=== PATIENT | male | born 2005 | race African-American/Black ===

== ENCOUNTER 2024-07-01 14:19 | Emergency (ER) | payer MEDICAID, SELFPAY ==
[2024-07-01 14:28] VITALS: BP 134/67; PULSE 68; RESP 16; TEMP 36.9; O2SAT 100; BMI 19.4
--- NOTE | 2024-07-01 14:29 | ED.MALEGU ---
HPI - Male Genitourinary General Chief complaint: Urogenital-Male Stated complaint: Pain upon urination Time Seen by Provider: 07/01/24 20:01 History of Present Illness ED Provider: Sabra DOZIER Narrative: The patient is a 19-year-old male who says that he had unprotected sexual intercourse a week ago with a woman he does not know very well. He says that he has had mild burning on urination for the last 2-3 days. He denies penile discharge. She denies any testicular pain. He denies any skin changes or lesions to his penis or scrotum. No fever, sweats, chills. Related Data Allergies Allergy/AdvReac Type Severity Reaction Status Date / Time No Known Allergies Allergy Verified 07/01/24 14:34 Review of Systems Review of Systems: Yes all other systems are reviewed and are negative [facility] Social History Social History Smoked in Last 30 Days: Yes Use of substances other than those prescribed or required for medical reasons: No Advance Directives: No Advance Directives Information Provided: Yes Physical Exam Vital Signs: Vital Signs: Last Vital Signs Temp 97.7 F 07/01/24 21:13 Pulse 57 07/01/24 21:13 Resp 16 07/01/24 21:13 BP 127/73 07/01/24 21:13 Pulse Ox 100 07/01/24 21:13 O2 Del Method Room Air 07/01/24 21:13 BMI result Body Mass Index 19.4 Const: Other: The patient is a slim young man who was awake and alert and does not appear acutely ill. HEENT: Other: Face is symmetrical, mucous membranes moist. Eyes: General: appearance normal, both eyes and all related structures Neck: Neck: Yes normal visual inspection and Yes full ROM Resp: Effort & Inspection: normal respiratory effort Auscultation: clear to auscultation bilaterally Cardio: Rate: regular rate Rhythm: regular rhythm Heart sounds: S1 normal heart sound present and S2 normal heart sound present : Other: The patient deferred a genital examination Skin: Other: Skin is dry and unremarkable Neuro: Other: The patient is awake, alert, pleasant, cooperative. Cranial nerves are grossly intact. He moves his extremities normally and appropriately. Extrem: Other: No peripheral edema Course Course Course Narrative: This is a Rapid Medical Exam performed in triage by Maritza Couch PA-C. Full HPI, ROS and PE to be performed by primary ED provider. 19 yo [place] speaking male presenting to the ED c/o dysuria x 2-3 days. Admits to unprotected intercourse last week. Sent in from [employer]. denies penile discharge, abdominal pain/back pain, testicular pain PE: area not examine in triage Plan: UA, CT/NG Medications Administered Discontinued Medications Generic Name Dose Route Start Last Admin Trade Name Boogie PRN Reason Stop Dose Admin Ceftriaxone Sodium 500 mg 07/01/24 20:17 07/01/24 21:09 Ceftriaxone Sodium 500 Mg Vial IM 07/01/24 20:18 500 mg ONCE ONE Administration Doxycycline Monohydrate 100 mg 07/01/24 20:17 07/01/24 21:08 Doxycycline Monohydrate 100 Mg Capsule PO 07/01/24 20:18 100 mg ONCE ONE Administration Medical Decision Making Medical Decision Making [facility] Narrative: The patient is a very pleasant ordinarily healthy 19-year-old who is here for concern about a possible sexually transmitted infection. He had a sexual encounter 1 week ago with a person he does not know very well. He says he has been having some mild dysuria for the last 2 or 3 days. He denies penile discharge or testicular pain. He denies any fever, sweats, chills. He declined a genital exam. His urinalysis is unremarkable. Urine testing for gonorrhea and chlamydia are negative. I explained to the patient that these test results are not always reliable and that we would provide treatment for him for a possible STD exposure regardless. He was given 500 mg of IM ceftriaxone and will be treated with doxycycline 100 mg b.i.d. x1 week for possible nongonococcal urethritis. Additionally the patient was interested in being tested for HIV and syphilis. An HIV test and an RPR were sent. He has a PCP and he is advised to follow up with his PCP next week. Lab Data Labs: Lab Results 07/01/24 Range/Units 14:47 Urine Color Yellow Urine Appearance Clear Urine pH 7.0 (5.0-9.0) Ur Specific [place] 1.015 (1.005-1.025) Urine Protein Negative (Neg-Trace) mg/dL Urine Glucose (UA) Negative (Negative) mg/dL Urine Ketones Negative (Negative) mg/dL Urine Blood Negative (Negative) Urine Nitrite Negative (Negative) Ur Leukocyte Esterase Negative (Negative) Chlam trachomat DNA PCR NOT DETECTED (Not Detect.) N.gonorrhoeae DNA (PCR) NOT DETECTED (Not Detect.) Discharge Plan Discharge Clinical Impression: Dysuria, Urethritis Patient Disposition: Home, Self-Care Additional Instructions: Your screening tests for two common sexually transmitted infections, gonorrhea and chlamydia, are negative. Although it is good that you are testing negative we do not rely completely on these tests and therefore we have provided treatment for these conditions. You received an injection of an antibiotic called ceftriaxone. Additionally, and probably more importantly, you has been prescribed a course of doxycycline. Please finish this course of medicine and take all 7 days' worth. Blood tests has been sent for HIV and syphilis testing. Please contact your primary care doctor's office in the morning to arrange a follow up appointment next week to discuss how you are doing and the results of these tests. I would recommend avoiding any sexual contact until you have followed up with your regular doctor for additional advice and have received all the results of any testing we have done. Return to the emergency room if you feel significantly worse. Referrals: Bishop Aguero FNP [Nurse Practitioner] - (Possible STD exposure) Interventions: ED Discharge Assessment Last Done: 07/01/24 21:13 Discharge Date/Time: 07/01/24 21:14 Print Language: German
[2024-07-01 14:58] LABS: Appearance Urine Clear; Color Urine Yellow; Glucose Urine UA Negative (Negative); Leukocyte Esterase Urine Negative (Negative); Nitrite Urine Negative (Negative); Specific Gravity - Urine 1.015 (1.005-1.025); Urine Blood Negative (Negative); Urine Ketones Negative (Negative); Urine Protein Negative (Neg-Trace)
[2024-07-01 16:27] LABS: CT PCR NOT DETECTED (Not Detect.); NG PCR NOT DETECTED (Not Detect.)
[2024-07-01 21:06] VITALS: BP 127/73; PULSE 57; RESP 16; TEMP 36.5; O2SAT 100
[2024-07-01] MEDS: Doxycycline Monohydrate 100 MG CAPSULE PO (21:08)
[2024-07-01] MEDS: cefTRIAXone sodium 500 MG VIAL IM (21:09)
[2024-07-01 21:13] VITALS: BP 127/73; PULSE 57; RESP 16; TEMP 36.5; O2SAT 100
[2024-07-02 09:07] LABS: HIV AB/AG Nonreactive (Nonreactive); HIV Num 1 0.06 S/CO (0.00-0.99)
[2024-07-02 09:19] LABS: Syphilis Screen Nonreactive (Nonreactive)
== END 2024-07-01 21:14 | disposition home or self-care (01) ==
PROVIDERS: Physician Assistant; Emergency Provider Emergency Medicine
DX: N34.2 Other urethritis (principal); R30.0 Dysuria; Z79.899 Other long term (current) drug therapy
CPT/HCPCS: 36415; 81003; 86780; 87389; 87491; 87591; 96372; 99283; 99284; J0696

== ENCOUNTER 2024-12-09 11:15 | Emergency (ER) | payer OTHER, SELFPAY ==
[2024-12-09 11:31] VITALS: BP 150/62; PULSE 66; RESP 18; TEMP 36.8; O2SAT 99; BMI 18.7
--- NOTE | 2024-12-09 11:37 | ED_ITS ---
HPI - Male Genitourinary General Chief complaint: Urogenital-Male Stated complaint: Pain? Sent from [facility] Time Seen by Provider: 12/09/24 15:28 Source: patient and RN notes reviewed Mode of arrival: ambulatory Limitations: no limitations History of Present Illness ED Provider: Irina Brenner PA-C HPI Narrative: This is a 19-year-old male who presents emergency department for evaluation of white penile discharge and painful urination which started on Sunday. Patient reports that he is sexually active, in his concerned that he has a sexually transmitted infection. Denies any fevers, chills, rashes, testicular pain or swelling. He also reports a mild headache. Denies taking any medications at home to treat his current symptoms. No other complaints or concerns at this time. MD Complaint: penile discharge, dysuria and possible STD exposure Onset (ago): day(s) Duration: constant Location: penis Relieving factors: none Exacerbating factors: none Associated symptoms: Reports denies other symptoms Related Data Previous Rx's ?Medication ?Instructions ?Recorded doxycycline hyclate 100 mg tablet 100 mg PO BID 7 days #13 tabs 12/09/24 Allergies Allergy/AdvReac Type Severity Reaction Status Date / Time No Known Allergies Allergy Verified 12/09/24 11:34 Review of Systems Review of Systems: Constitutional : No Fever, No Chills ENT/Mouth : No sore throat, No Rhinorrhea Eyes: No Eye Pain, No Swelling, No Redness Cardiovascular : No Chest Pain, No SOB Respiratory : No Cough, No Sputum Gastrointestinal : No Nausea, No Vomiting, No Diarrhea, No abdominal Pain Genitourinary : No Dysuria, No Hematuria Musculoskeletal : No joint pain, No Myalgias, No Joint Swelling Skin : No Skin Lesions Neuro : No Weakness, No Numbness, No Headache All other systems reviewed and are negative Yes all other systems are reviewed and are negative Constitutional: Constitutional: Reports as per [facility] Social History Social History Smoked in Last 30 Days: No Use of substances other than those prescribed or required for medical reasons: No Advance Directives: No Advance Directives Information Provided: No Do you have a plan to hurt others: No Plan Physical Exam Vital Signs: Vital Signs: Last Vital Signs Temp 98.0 F 12/09/24 16:10 Pulse 72 12/09/24 16:10 Resp 18 12/09/24 16:10 BP 136/78 11/04/25 16:10 Pulse Ox 100 12/09/24 16:10 O2 Del Method Room Air 12/09/24 16:10 BMI result Body Mass Index 18.7 Const: General: cooperative, comfortable and no acute distress Orientation/consciousness: patient oriented x3 Limitations: no limitations HEENT: Head: Yes normal to inspection, Yes normocephalic and Yes atraumatic Ears: hearing grossly normal bilaterally General nose exam: Normal external nose present Face and sinus: Yes normal facial exam Mouth: Normal oral and palatal mucosa present, oropharynx normal and moist mucous membranes Throat: Yes posterior oropharynx normal Eyes: General: appearance normal, both eyes and all related structures Eyelids: Yes eyelids normal Conjunctivae: conjunctivae normal Sclerae: sclerae normal Pupils: Equal, round and reactive pupils present EOM: EOMs intact bilaterally Neck: Neck: Yes normal visual inspection, Yes full ROM and Yes no lymphadenopathy Lymphatic: no lymphadenopathy noted Chest: Chest palpation & inspection: normal inspection of the chest Resp: Effort & Inspection: normal respiratory effort and able to speak in complete sentences Auscultation: clear to auscultation bilaterally, no crackles, no rales, no rhonchi and no wheezes Cardio: Rate: regular rate Rhythm: regular rhythm Heart sounds: S1 normal heart sound present and S2 normal heart sound present GI: Inspection: Yes normal to inspection Skin: General skin exam: no rashes or lesions noted Trauma: no lacerations or abrasions Wounds: no wounds Neuro: General: patient oriented x3 and moves all extremities Cranial nerves: Yes Equal, round and reactive pupils present Extrem: General: Yes normal to inspection Right upper extremity: normal to inspection Left upper extremity: normal to inspection Right lower extremit y: normal to inspection Left lower extremity: normal to inspection Course Course Course Narrative: This is a rapid medical exam performed by Jas Browning NP: Additional HPI, ROS, PE not included below will be deferred to primary provider. Patient is a 19y/o M presenting with complaint of dysuria and white penile discharge since Sunday. Plan: UA, CT NG urine Medications Administered Discontinued Medications Generic Name Dose Route Start Last Admin Trade Name Freq PRN Reason Stop Dose Admin Ceftriaxone Sodium 500 mg 12/09/24 15:43 12/09/24 16:02 Ceftriaxone Sodium 500 Mg Vial IM 12/09/24 15:44 500 mg ONCE ONE Administration Doxycycline Monohydrate 100 mg 12/09/24 15:43 12/09/24 16:02 Doxycycline Monohydrate 100 Mg Capsule PO 12/09/24 15:44 100 mg ONCE ONE Administration Medical Decision Making Medical Decision Making [facility] Narrative: This is a 19-year-old male who presents emergency department with concerns of burning with urination and penile discharge which started yesterday. History of similar symptoms in the past. He is sexually active, concern for sexually transmitted infection. Differential diagnoses include gonorrhea, chlamydia, STI, dysuria, UTI. Patient tested positive for gonorrhea and chlamydia. Will treat with ceftriaxone and doxycycline. Advised patient to follow-up with [facility] to test for a full panel. Advised patient to refrain from sexual intercourse until he completes full course, also advised to tell all sexual partners of these positive test. He understands and agrees with plan. Given strict return precautions. Differential Diagnosis Differential Diagnoses: The differential diagnosis associated with the presentation includes Admission/Observation Consideration of admission/observation: Escalation of care including admission/observation considered Lab Data [facility] Lab Attestation statement: I reviewed the patient's lab results. +chlamydia and gonorrhea Labs: Lab Results 12/09/24 Range/Units 11:54 Urine Color Yellow Urine Appearance Clear Urine pH 8.0 (5.0-9.0) Ur Specific [place] 1.015 (1.005-1.025) Urine Protein Negative (Neg-Trace) mg/dL Urine Glucose (UA) Negative (Negative) mg/dL Urine Ketones Negative (Negative) mg/dL Urine Blood Negative (Negative) Urine Nitrite Negative (Negative) Ur Leukocyte Esterase Negative (Negative) Ur N gonorrhoeae DNA (PCR) DETECTED A (Not Detect.) Ur Chlamydia DNA (PCR) DETECTED A (Not Detect.) Discharge Plan Discharge Clinical Impression: Chlamydia, Gonorrhea Patient Disposition: Home, Self-Care Instructions: Chlamydia (ED), Sexually Transmitted Diseases (ED), Gonorrhea (ED) Additional Instructions: You were seen in the emergency department and you were found to be positive for chlamydia and gonorrhea. These are sexually transmitted infections, please inform all sexual partners that you tested positive for this as they also will need treatment for this. I am also recommending that you follow-up with [facility] as they can test you for other sexually transmitted infections. Complete the full course of antibiotics. If any new or worsening symptoms occur including but not limited to inability to urinate, high fevers, please seek emergent care. [facility] [address], [place], [place] [phone] Prescriptions: New doxycycline hyclate 100 mg tablet 100 mg PO BID 7 Days Qty: 13 0RF Interventions: ED Discharge Assessment Last Done: 12/09/24 16:10 Discharge Date/Time: 12/09/24 16:12 Print Language: Georgian
[2024-12-09 12:20] LABS: Appearance Urine Clear; Glucose Urine UA Negative (Negative); PH 8.0 (5.0-9.0); Specific Gravity - Urine 1.015 (1.005-1.025)
[2024-12-09 14:40] LABS: CT PCR Urine DETECTED (Not Detect.); NG PCR Urine DETECTED (Not Detect.)
[2024-12-09 16:10] VITALS: BP 136/78; PULSE 72; RESP 18; TEMP 36.7; O2SAT 100
== END 2024-12-09 16:12 | disposition home or self-care (01) ==
PROVIDERS: Registered Nurse Emergency; Emergency Provider Emergency Medicine
DX: A54.9 Gonococcal infection, unspecified (principal); A56.8 Sexually transmitted chlamydial infection of other sites
CPT/HCPCS: 81003; 87491; 87591; 96372; 99284; J0696